=== PATIENT | female | born 1955 | race Caucasian/White ===

== ENCOUNTER → 2018-12-09 | Outpatient (CLI) | payer SELFPAY | END | disposition home or self-care (01) | LOC: HKI 15:07 | DX: M25.551 Pain in right hip (principal); R10.2 Pelvic and perineal pain | CPT/HCPCS: 73502 ==

== ENCOUNTER 2018-12-16 05:49 | Inpatient (IN) | payer OTHER ==
[2018-12-15] MEDS: TRANEXAMIC ACID 1GM/100ML(PMX) 100 ML PRE-OP IVPB (07:30)
[2018-12-16] MEDS: CEFAZOLIN 2 GM/50 ML (PMX) 50 ML IVPB ×3 (06:00→20:11)
[2018-12-16 06:32] LABS: ADD MAN DIFF? NO
[2018-12-16 06:40] LABS: BASOPHIL # 0.1 10^3/ul (0.0-0.1); BASOPHILS % 0.7 % (0.0-2.0); EOSINOPHILS # 0.2 10^3/ul (0.0-0.5); EOSINOPHILS % 2.2 % (0.0-7.0); HEMATOCRIT 38.5 % (37.0-47.0); HEMOGLOBIN 12.6 g/dl (12.0-16.0); LYMPHOCYTES # 3.1 10^3/ul (0.8-2.9); LYMPHOCYTES % 43.1 % (15.0-51.0); MEAN CORPUSCULAR HEMOGLOBIN 29.2 pg (29.0-33.0); MEAN CORPUSCULAR HGB CONC 32.7 g/dl (32.0-37.0); MEAN CORPUSCULAR VOLUME 89.3 fl (82.0-101.0); MEAN PLATELET VOLUME 8.4 fl (7.4-10.4); MONOCYTE # 0.6 10^3/ul (0.3-0.9); MONOCYTES % 8.5 % (0.0-11.0); NEUTROPHIL # 3.2 10^3/ul (1.6-7.5); NEUTROPHILS % 45.4 % (39.0-77.0); PLATELET COUNT 302 10^3/UL (140-415); RED BLOOD COUNT 4.31 10^6/ul (4.20-5.40); RED CELL DISTRIBUTION WIDTH 13.7 % (11.5-14.5)
[2018-12-16 06:40] LABS: WHITE BLOOD COUNT 7.2 10^3/ul (4.8-10.8)
[2018-12-16] MEDS: VANCOMYCIN 1 GM (PMX) 250 ML IVPB ×2 (06:44→17:43)
[2018-12-16] MEDS: ACETAMINOPHEN 1000MG/100ML IV 100 ML IVPB (06:44)
[2018-12-16] MEDS: CELECOXIB 200 MG CAP PO (06:45)
[2018-12-16] MEDS: LANSOPRAZOLE 30 MG CAP PO (06:45)
[2018-12-16] MEDS: DEXAMETHASONE 4 MG/ML 1 ML INJ IV (06:46)
[2018-12-16] MEDS: ONDANSETRON 4 MG INJ IV (06:46)
[2018-12-16] MEDS: LACTATED RINGER'S 1,000 ML IV* (06:54)
[2018-12-16] MEDS ORDERED: ROCURONIUM 50 MG INJ (07:00)
[2018-12-16 07:01] LABS: INR 0.88; PARTIAL THROMBOPLASTIN TIME 31.2 Sec (23.0-35.0); PT RATIO 0.9
[2018-12-16 07:07] LABS: ANION GAP 11 (5-13); CALCIUM 10.1 mg/dl (8.4-10.2); CARBON DIOXIDE 30 mmol/L (21-31); CHLORIDE 101 mmol/L (97-110); CREATININE 0.62 mg/dl (0.44-1.00); Estimated GFR > 60 mL/min (>60); GLUCOSE 82 mg/dl (70-220); POTASSIUM 4.4 mmol/L (3.5-5.1); SODIUM 142 mmol/L (135-144)
[2018-12-16 07:08] LABS: BLOOD UREA NITROGEN 21 mg/dl (7-20)
[2018-12-16] MEDS ORDERED: BACITRACIN 50000 UNITS INJ ×2 (07:11)
[2018-12-16] MEDS ORDERED: POLYMYXIN B 500000 UNIT INJ (07:13)
[2018-12-16] MEDS ORDERED: PROPOFOL 20 ML (07:27)
[2018-12-16] MEDS ORDERED: CEFAZOLIN 1 GM INJ (07:27)
[2018-12-16] MEDS ORDERED: FENTAnyl 50 MCG/ML VIAL (07:28)
[2018-12-16] MEDS ORDERED: MIDAZOLAM 1 MG/ML 2 ML INJ (07:28)
[2018-12-16] MEDS ORDERED: METOCLOPRAMIDE 10 MG INJ (07:28)
[2018-12-16] MEDS ORDERED: morphine SULFATE/PF (10 MG/10 ML) INJ (07:28)
[2018-12-16] MEDS ORDERED: TRANEXAMIC ACID 1GM/100ML(PMX) 200 ML (07:34)
[2018-12-16] MEDS: TRANEXAMIC ACID 1GM/100ML(PMX) 100 ML PRE-OP IVPB (08:19)
[2018-12-16] MEDS ORDERED: MEPERIDINE 25 MG INJ IV (08:30)
[2018-12-16] MEDS ORDERED: HYDROmorphONE 1 MG/5 ML IV SYRINGE IV ×3 (08:30)
[2018-12-16] MEDS ORDERED: FENTAnyl 50 MCG/ML VIAL IV ×3 (08:30)
[2018-12-16] MEDS ORDERED: ONDANSETRON 4 MG INJ IV (08:30)
[2018-12-16] MEDS ORDERED: ROPIVACAINE 0.5 % 30 ML VIAL (09:50)
[2018-12-16] MEDS ORDERED: ALBUMIN HUMAN 5% 250 ML (10:24)
[2018-12-16] MEDS ORDERED: EPHEDrine 50 MG INJ (10:24)
[2018-12-16] MEDS ORDERED: ONDANSETRON 4 MG INJ (10:46)
[2018-12-16] MEDS ORDERED: SUCCINYLCHOLINE CHLORIDE 100 MG/5 ML SYG IV (11:47)
[2018-12-16] MEDS ORDERED: SENNA/DOCUSATE NA (8.6MG/50MG) TAB PO (12:00)
[2018-12-16] MEDS ORDERED: HYDROmorphONE 1 MG/ML SYG IV (12:00)
[2018-12-16] MEDS ORDERED: BISACODYL 10 MG SUPP PR (12:00)
[2018-12-16] MEDS ORDERED: BETHANECHOL 25 MG TAB PO (12:00)
[2018-12-16] MEDS ORDERED: DIPHENHYDRAMINE 50 MG INJ IV (12:00)
[2018-12-16] MEDS ORDERED: NACL 0.9% 3 ML SYG IV (12:00)
[2018-12-16] MEDS ORDERED: NA PHOSPHATE/BIPHOS 133 ML ENEMA PR (12:00)
[2018-12-16] MEDS ORDERED: NALOXONE (0.4 MG/ML) INJ IV (12:00)
[2018-12-16] MEDS: DIPHENHYDRAMINE 50 MG INJ IV (12:05)
[2018-12-16] MEDS: TRANEXAMIC ACID 1GM/100ML(PMX) 100 ML AT CLOSING IVPB (12:07)
[2018-12-16] MEDS ORDERED: DOCUSATE SODIUM 100 MG CAP PO (12:48)
[2018-12-16] MEDS: DOCUSATE SODIUM 100 MG CAP PO (12:57)
[2018-12-16] MEDS: LACTATED RINGER'S 1,000 ML IV ×2 (13:40→20:14)
[2018-12-16] MEDS: ACETAMINOPHEN 500 MG TAB PO ×2 (14:52→21:57)
[2018-12-16] MEDS: GABAPENTIN 300 MG CAP PO (20:11)
[2018-12-17] MEDS: CEFAZOLIN 2 GM/50 ML (PMX) 50 ML IVPB (03:43)
[2018-12-17] MEDS: LACTATED RINGER'S 1,000 ML IV ×2 (03:43→22:22)
[2018-12-17] MEDS: oxyCODONE 5 MG TAB PO ×4 (03:52→20:42)
[2018-12-17] MEDS: VANCOMYCIN 1 GM (PMX) 250 ML IVPB (05:07)
[2018-12-17] MEDS: ACETAMINOPHEN 500 MG TAB PO ×3 (05:09→22:25)
[2018-12-17] MEDS: PANTOPRAZOLE (EC) 40 MG TAB PO (05:09)
[2018-12-17] MEDS: DEXAMETHASONE 10 MG/ML 1 ML INJ IV (05:12)
[2018-12-17 05:20] LABS: ABNORMAL IP MESSAGE 1; HEMATOCRIT 19.6 % (37.0-47.0); MEAN CORPUSCULAR HEMOGLOBIN 30.1 pg (29.0-33.0); MEAN CORPUSCULAR HGB CONC 33.2 g/dl (32.0-37.0); MEAN CORPUSCULAR VOLUME 90.7 fl (82.0-101.0); MEAN PLATELET VOLUME 8.9 fl (7.4-10.4); PLATELET COUNT 170 10^3/UL (140-415); RED BLOOD COUNT 2.16 10^6/ul (4.20-5.40); RED CELL DISTRIBUTION WIDTH 14.1 % (11.5-14.5)
[2018-12-17 05:37] LABS: ANION GAP 5 (5-13); BLOOD UREA NITROGEN 21 mg/dl (7-20); CALCIUM 8.4 mg/dl (8.4-10.2); CARBON DIOXIDE 27 mmol/L (21-31); CHLORIDE 106 mmol/L (97-110); CREATININE 0.75 mg/dl (0.44-1.00); Estimated GFR > 60 mL/min (>60); GLUCOSE 110 mg/dl (70-220); POTASSIUM 4.1 mmol/L (3.5-5.1); SODIUM 138 mmol/L (135-144)
[2018-12-17 05:42] LABS: INR 1.11; PROTIME 14.4 Sec (11.9-14.9); PT RATIO 1.1
[2018-12-17 05:55] LABS: POSITIVE DIFF @See below
[2018-12-17 05:58] LABS: ADD MAN DIFF? YES; HEMOGLOBIN 6.5 g/dl (12.0-16.0)
[2018-12-17 07:27] LABS: ADD MAN DIFF? NO
[2018-12-17 07:31] LABS: WHITE BLOOD COUNT 5.9 10^3/ul (4.8-10.8)
[2018-12-17 07:31] LABS: ABNORMAL IP MESSAGE 1; BASOPHILS % 0.2 % (0.0-2.0); EOSINOPHILS % 0.2 % (0.0-7.0); HEMATOCRIT 19.4 % (37.0-47.0); LYMPHOCYTES # 1.4 10^3/ul (0.8-2.9); LYMPHOCYTES % 24.1 % (15.0-51.0); MEAN CORPUSCULAR HEMOGLOBIN 29.7 pg (29.0-33.0); MEAN CORPUSCULAR HGB CONC 32.5 g/dl (32.0-37.0); MEAN CORPUSCULAR VOLUME 91.5 fl (82.0-101.0); MEAN PLATELET VOLUME 8.9 fl (7.4-10.4); MONOCYTE # 0.4 10^3/ul (0.3-0.9); MONOCYTES % 6.9 % (0.0-11.0); NEUTROPHIL # 4.1 10^3/ul (1.6-7.5); NEUTROPHILS % 68.3 % (39.0-77.0); PLATELET COUNT 179 10^3/UL (140-415); RED BLOOD COUNT 2.12 10^6/ul (4.20-5.40); RED CELL DISTRIBUTION WIDTH 14.1 % (11.5-14.5)
[2018-12-17 07:36] LABS: HEMOGLOBIN 6.3 g/dl (12.0-16.0)
[2018-12-17 07:37] LABS: POSITIVE DIFF @See below
[2018-12-17 07:38] LABS: ANISOCYTOSIS 1+ (0-0); BAND NEUTROPHILS % (M) 17 % (0-4); LYMPHOCYTES #M 1.6 10^3/ul (0.8-2.9); LYMPHOCYTES % (M) 28 % (15-51); MICROCYTOSIS 1+ (0-0); MONOCYTE #M 0.1 10^3/ul (0.3-0.9); MONOCYTES % (M) 2 % (0-11); PLATELET ESTIMATE NORMAL; SEG NEUT #M 3.2 10^3/ul (1.6-7.5); SEGMENTED NEUTROPHILS (M) % 53 % (39-77); SMUDGE%M 19 % (0-0)
[2018-12-17] MEDS: ASPIRIN (EC) 81 MG TAB PO ×2 (08:32→21:00)
[2018-12-17] MEDS: DOCUSATE SODIUM 100 MG CAP PO ×2 (08:32→20:42)
[2018-12-17] MEDS: CARISOPRODOL 350 MG TAB PO (11:45)
[2018-12-17] MEDS ORDERED: ONDANSETRON 4 MG INJ IV (12:00)
[2018-12-17 12:42] LABS: HEMATOCRIT 20.7 % (37.0-47.0)
[2018-12-17 12:46] LABS: HEMOGLOBIN 6.7 g/dl (12.0-16.0)
[2018-12-17 20:20] LABS: HEMATOCRIT 19.3 % (37.0-47.0)
[2018-12-17 20:27] LABS: HEMOGLOBIN 6.2 g/dl (12.0-16.0)
[2018-12-17] MEDS: GABAPENTIN 300 MG CAP PO (20:43)
[2018-12-18] MEDS: oxyCODONE 5 MG TAB PO ×2 (02:13→21:14)
[2018-12-18 05:19] LABS: ADD MAN DIFF? NO
[2018-12-18 05:23] LABS: WHITE BLOOD COUNT 6.3 10^3/ul (4.8-10.8)
[2018-12-18 05:23] LABS: ABNORMAL IP MESSAGE 1; BASOPHILS % 0.2 % (0.0-2.0); EOSINOPHILS % 0.5 % (0.0-7.0); HEMATOCRIT 17.9 % (37.0-47.0); LYMPHOCYTES # 1.8 10^3/ul (0.8-2.9); MEAN CORPUSCULAR HEMOGLOBIN 30.6 pg (29.0-33.0); MEAN CORPUSCULAR VOLUME 92.7 fl (82.0-101.0); MEAN PLATELET VOLUME 9.2 fl (7.4-10.4); MONOCYTE # 0.5 10^3/ul (0.3-0.9); MONOCYTES % 7.2 % (0.0-11.0); NEUTROPHILS % 63.6 % (39.0-77.0); PLATELET COUNT 161 10^3/UL (140-415); RED BLOOD COUNT 1.93 10^6/ul (4.20-5.40); RED CELL DISTRIBUTION WIDTH 14.4 % (11.5-14.5)
[2018-12-18 05:24] LABS: POSITIVE DIFF @See below
[2018-12-18 05:25] LABS: HEMOGLOBIN 5.9 g/dl (12.0-16.0)
[2018-12-18 05:41] LABS: ANION GAP 5 (5-13); BLOOD UREA NITROGEN 17 mg/dl (7-20); CALCIUM 8.2 mg/dl (8.4-10.2); CARBON DIOXIDE 29 mmol/L (21-31); CHLORIDE 106 mmol/L (97-110); CREATININE 0.67 mg/dl (0.44-1.00); Estimated GFR > 60 mL/min (>60); GLUCOSE 103 mg/dl (70-220); POTASSIUM 3.9 mmol/L (3.5-5.1); SODIUM 140 mmol/L (135-144)
[2018-12-18 05:43] LABS: INR 1.02; PROTIME 13.5 Sec (11.9-14.9); PT RATIO 1.1
[2018-12-18] MEDS: ACETAMINOPHEN 500 MG TAB PO ×3 (06:07→21:11)
[2018-12-18] MEDS: PANTOPRAZOLE (EC) 40 MG TAB PO (06:07)
[2018-12-18 06:21] LABS: IMMEDIATE SPIN CROSSMATCH 1 2
[2018-12-18] MEDS: DOCUSATE SODIUM 100 MG CAP PO ×2 (08:24→21:11)
[2018-12-18] MEDS: LACTATED RINGER'S 1,000 ML IV (15:30)
[2018-12-18] MEDS: SENNA TAB PO (17:06)
[2018-12-18 20:19] LABS: HEMATOCRIT 28.7 % (37.0-47.0); HEMOGLOBIN 9.4 g/dl (12.0-16.0)
[2018-12-18] MEDS: GABAPENTIN 300 MG CAP PO (21:11)
[2018-12-19] MEDS: LACTATED RINGER'S 1,000 ML IV (04:00)
[2018-12-19] MEDS: PANTOPRAZOLE (EC) 40 MG TAB PO (05:10)
[2018-12-19] MEDS: ACETAMINOPHEN 500 MG TAB PO ×3 (05:10→20:57)
[2018-12-19] MEDS: oxyCODONE 5 MG TAB PO ×2 (05:10→12:33)
[2018-12-19] MEDS: MAGNESIUM HYDROXIDE 30ML CUP PO (05:12)
[2018-12-19 05:37] LABS: ADD MAN DIFF? NO
[2018-12-19 05:47] LABS: BASOPHILS % 0.4 % (0.0-2.0); EOSINOPHILS # 0.2 10^3/ul (0.0-0.5); EOSINOPHILS % 2.2 % (0.0-7.0); HEMATOCRIT 26.8 % (37.0-47.0); HEMOGLOBIN 8.9 g/dl (12.0-16.0); LYMPHOCYTES # 2.5 10^3/ul (0.8-2.9); LYMPHOCYTES % 36.4 % (15.0-51.0); MEAN CORPUSCULAR HEMOGLOBIN 29.3 pg (29.0-33.0); MEAN CORPUSCULAR HGB CONC 33.2 g/dl (32.0-37.0); MEAN CORPUSCULAR VOLUME 88.2 fl (82.0-101.0); MONOCYTE # 0.4 10^3/ul (0.3-0.9); MONOCYTES % 5.5 % (0.0-11.0); NEUTROPHIL # 3.8 10^3/ul (1.6-7.5); NEUTROPHILS % 55.2 % (39.0-77.0); PLATELET COUNT 223 10^3/UL (140-415); RED BLOOD COUNT 3.04 10^6/ul (4.20-5.40); RED CELL DISTRIBUTION WIDTH 14.5 % (11.5-14.5)
[2018-12-19 05:47] LABS: WHITE BLOOD COUNT 6.9 10^3/ul (4.8-10.8)
[2018-12-19 06:00] LABS: INR 0.93; PROTIME 12.6 Sec (11.9-14.9)
[2018-12-19 06:16] LABS: ANION GAP 4 (5-13); BLOOD UREA NITROGEN 12 mg/dl (7-20); CALCIUM 8.4 mg/dl (8.4-10.2); CARBON DIOXIDE 27 mmol/L (21-31); CHLORIDE 107 mmol/L (97-110); CREATININE 0.58 mg/dl (0.44-1.00); Estimated GFR > 60 mL/min (>60); GLUCOSE 96 mg/dl (70-220); POTASSIUM 4.1 mmol/L (3.5-5.1); SODIUM 138 mmol/L (135-144)
[2018-12-19] MEDS: DOCUSATE SODIUM 100 MG CAP PO ×2 (09:04→20:56)
[2018-12-19 09:53] LABS: ADD UMIC NO; UR ASCORBIC ACID NEGATIVE (NEGATIVE); UR BILIRUBIN (Dip) NEGATIVE (NEGATIVE); UR BLOOD (Dip) NEGATIVE (NEGATIVE); UR CLARITY CLEAR (CLEAR); UR COLOR YELLOW (YELLOW); UR GLUCOSE (Dip) NEGATIVE (NEGATIVE); UR KETONES (Dip) NEGATIVE (NEGATIVE); UR LEUKOCYTE ESTERASE (Dip) NEGATIVE Leu/ul (NEGATIVE); UR NITRITE (Dip) NEGATIVE (NEGATIVE); UR SPECIFIC GRAVITY (Dip) 1.015 (1.003-1.030); UR TOTAL PROTEIN (Dip) NEGATIVE (NEGATIVE); UR UROBILINOGEN (Dip) NEGATIVE (NEGATIVE)
[2018-12-19] MEDS: GABAPENTIN 300 MG CAP PO (20:56)
[2018-12-20] MEDS: oxyCODONE 5 MG TAB PO ×3 (04:24→16:39)
[2018-12-20] MEDS: ACETAMINOPHEN 500 MG TAB PO ×2 (05:17→14:25)
[2018-12-20 05:18] LABS: ADD MAN DIFF? NO
[2018-12-20 05:25] LABS: BASOPHILS % 0.4 % (0.0-2.0); EOSINOPHILS # 0.1 10^3/ul (0.0-0.5); EOSINOPHILS % 2.7 % (0.0-7.0); HEMOGLOBIN 9.3 g/dl (12.0-16.0); LYMPHOCYTES # 1.5 10^3/ul (0.8-2.9); LYMPHOCYTES % 29.2 % (15.0-51.0); MEAN CORPUSCULAR HEMOGLOBIN 29.6 pg (29.0-33.0); MEAN CORPUSCULAR HGB CONC 33.2 g/dl (32.0-37.0); MEAN CORPUSCULAR VOLUME 89.2 fl (82.0-101.0); MEAN PLATELET VOLUME 8.7 fl (7.4-10.4); MONOCYTE # 0.4 10^3/ul (0.3-0.9); MONOCYTES % 8.4 % (0.0-11.0); NEUTROPHIL # 3.1 10^3/ul (1.6-7.5); NEUTROPHILS % 58.9 % (39.0-77.0); PLATELET COUNT 268 10^3/UL (140-415); RED BLOOD COUNT 3.14 10^6/ul (4.20-5.40); RED CELL DISTRIBUTION WIDTH 13.9 % (11.5-14.5)
[2018-12-20 05:25] LABS: WHITE BLOOD COUNT 5.2 10^3/ul (4.8-10.8)
[2018-12-20] MEDS: PANTOPRAZOLE (EC) 40 MG TAB PO (05:26)
[2018-12-20 05:40] LABS: PROTIME 12.3 Sec (11.9-14.9)
[2018-12-20 05:44] LABS: ANION GAP 6 (5-13); BLOOD UREA NITROGEN 12 mg/dl (7-20); CALCIUM 8.9 mg/dl (8.4-10.2); CARBON DIOXIDE 31 mmol/L (21-31); CHLORIDE 103 mmol/L (97-110); Estimated GFR > 60 mL/min (>60); GLUCOSE 100 mg/dl (70-220); POTASSIUM 4.2 mmol/L (3.5-5.1); SODIUM 140 mmol/L (135-144)
== END 2018-12-20 17:00 | disposition home health service (06) | DRG 470 ==
LOC: REC 05:49 → MS1 13:40
PROC: 0SR904A Replacement of Right Hip Joint with Ceramic on Polyethylene Synthetic Substitute, Uncemented, Open Approach (ICD-10-PCS; principal; 2018-12-16 07:27)
PROC: 0QU407Z Supplement Right Acetabulum with Autologous Tissue Substitute, Open Approach (ICD-10-PCS; 2018-12-16 07:27)
DX: M24.7 Protrusio acetabuli (principal); D62 Acute posthemorrhagic anemia; M16.7 Other unilateral secondary osteoarthritis of hip; Z79.82 Long term (current) use of aspirin
CPT/HCPCS: 36430; 72170; 73500; 73530; 80048; 81003; 85014; 85018; 85025; 85610; 85730; 86850; 86900; 86901; 86920; 87081; 87086; 88304; 88311; 93005; 97110; 97116; 97162; 97165; 97530; 97535

== ENCOUNTER 2019-04-21 08:13 | Inpatient (IN) | payer MEDICARE, OTHER ==
[2019-04-21] MEDS: LACTATED RINGER'S 1,000 ML IV ×2 (09:12→17:00)
[2019-04-21] MEDS: LANSOPRAZOLE 30 MG CAP PO (09:16)
[2019-04-21] MEDS: CELECOXIB 200 MG CAP PO (09:16)
[2019-04-21] MEDS: GABAPENTIN 300 MG CAP PO ×2 (09:16→20:48)
[2019-04-21] MEDS: ACETAMINOPHEN 1000MG/100ML IV 100 ML IVPB (09:17)
[2019-04-21] MEDS: ONDANSETRON 4 MG INJ IV (09:17)
[2019-04-21] MEDS: DEXAMETHASONE 4 MG/ML 1 ML INJ IV (09:17)
[2019-04-21 09:46] LABS: INR 0.82; PROTIME 11.4 Sec (11.9-14.9); PT RATIO 0.9
[2019-04-21 09:47] LABS: PARTIAL THROMBOPLASTIN TIME 29.3 Sec (23.0-35.0)
[2019-04-21] MEDS: TRANEXAMIC ACID 1GM/100ML(PMX) 100 ML PRE-OP IVPB (10:00)
[2019-04-21] MEDS: CEFAZOLIN 2 GM/50 ML (PMX) 50 ML IVPB ×2 (10:00→21:23)
[2019-04-21] MEDS: TRANEXAMIC ACID 1GM/100ML(PMX) 100 ML AT CLOSING IVPB (10:00)
[2019-04-21] MEDS ORDERED: SEVOFLURANE 15 MIN (12:00)
[2019-04-21] MEDS ORDERED: TRANEXAMIC ACID 1GM/100ML(PMX) 200 ML (12:03)
[2019-04-21] MEDS ORDERED: ROCURONIUM 50 MG INJ (12:09)
[2019-04-21] MEDS ORDERED: GLYCOPYRROLATE 0.4 MG INJ ×2 (12:09→14:59)
[2019-04-21] MEDS ORDERED: PROPOFOL 20 ML (12:09)
[2019-04-21] MEDS ORDERED: NEOSTIGMINE 3 MG/3 ML SYRINGE ×2 (12:09→14:59)
[2019-04-21] MEDS ORDERED: SUCCINYLCHOLINE CHLORIDE 100 MG/5 ML SYG IV (12:09)
[2019-04-21] MEDS ORDERED: LIDOCAINE 2% (SDV) 5 ML INJ (12:09)
[2019-04-21] MEDS ORDERED: ONDANSETRON 4 MG INJ (12:13)
[2019-04-21] MEDS ORDERED: CEFAZOLIN 1 GM INJ (12:13)
[2019-04-21] MEDS ORDERED: METOCLOPRAMIDE 10 MG INJ (12:13)
[2019-04-21] MEDS ORDERED: ROPIVACAINE 0.5 % 30 ML VIAL (12:13)
[2019-04-21] MEDS ORDERED: DEXAMETHASONE 4 MG/ML 5 ML INJ (13:11)
[2019-04-21] MEDS ORDERED: EPHEDrine 25 MG/5 ML SYG (14:02)
[2019-04-21] MEDS ORDERED: hydrALAzine 20 MG INJ IV (16:00)
[2019-04-21] MEDS ORDERED: METOCLOPRAMIDE 10 MG INJ IV (16:00)
[2019-04-21] MEDS ORDERED: DIPHENHYDRAMINE 50 MG INJ IV ×2 (16:00→16:30)
[2019-04-21] MEDS ORDERED: LABETALOL HCL 20MG INJ IV (16:00)
[2019-04-21] MEDS ORDERED: FENTAnyl 50 MCG/ML VIAL IV ×3 (16:00)
[2019-04-21] MEDS ORDERED: ONDANSETRON 4 MG INJ IV (16:00)
[2019-04-21] MEDS ORDERED: EPHEDrine 25 MG/5 ML SYG IV (16:00)
[2019-04-21] MEDS ORDERED: HYDROmorphONE 1 MG/5 ML IV SYRINGE IV ×3 (16:00)
[2019-04-21] MEDS ORDERED: MIDAZOLAM 1 MG/ML 2 ML INJ IV (16:00)
[2019-04-21] MEDS ORDERED: MEPERIDINE 25 MG INJ IV (16:00)
[2019-04-21] MEDS ORDERED: MAGNESIUM HYDROXIDE 30ML CUP PO (16:30)
[2019-04-21] MEDS: DOCUSATE SODIUM 100 MG CAP PO (16:30)
[2019-04-21] MEDS ORDERED: HYDROmorphONE 1 MG/ML SYG IV (16:30)
[2019-04-21] MEDS ORDERED: NA PHOSPHATE/BIPHOS 133 ML ENEMA PR (16:30)
[2019-04-21] MEDS ORDERED: NALOXONE (0.4 MG/ML) INJ IV (16:30)
[2019-04-21] MEDS ORDERED: oxyCODONE 5 MG TAB PO (16:30)
[2019-04-21] MEDS ORDERED: BETHANECHOL 25 MG TAB PO (16:30)
[2019-04-21] MEDS ORDERED: NACL 0.9% 3 ML SYG IV (16:30)
[2019-04-21] MEDS ORDERED: SENNA/DOCUSATE NA (8.6MG/50MG) TAB PO (16:30)
[2019-04-21] MEDS ORDERED: BISACODYL 10 MG SUPP PR (16:30)
[2019-04-21] MEDS: ACETAMINOPHEN 500 MG TAB PO (20:49)
[2019-04-22] MEDS: oxyCODONE 5 MG TAB PO ×3 (00:59→16:36)
[2019-04-22] MEDS: CEFAZOLIN 2 GM/50 ML (PMX) 50 ML IVPB ×2 (04:23→11:34)
[2019-04-22] MEDS: LACTATED RINGER'S 1,000 ML IV ×2 (04:27→18:00)
[2019-04-22 06:13] LABS: ADD MAN DIFF? NO
[2019-04-22 06:22] LABS: WHITE BLOOD COUNT 10.1 10^3/ul (4.8-10.8)
[2019-04-22 06:22] LABS: BASOPHILS % 0.1 % (0.0-2.0); HEMATOCRIT 27.8 % (37.0-47.0); HEMOGLOBIN 9.2 g/dl (12.0-16.0); LYMPHOCYTES # 1.5 10^3/ul (0.8-2.9); LYMPHOCYTES % 14.4 % (15.0-51.0); MEAN CORPUSCULAR HEMOGLOBIN 29.4 pg (29.0-33.0); MEAN CORPUSCULAR HGB CONC 33.1 g/dl (32.0-37.0); MEAN CORPUSCULAR VOLUME 88.8 fl (82.0-101.0); MEAN PLATELET VOLUME 8.8 fl (7.4-10.4); MONOCYTE # 0.7 10^3/ul (0.3-0.9); MONOCYTES % 6.4 % (0.0-11.0); NEUTROPHILS % 78.7 % (39.0-77.0); PLATELET COUNT 241 10^3/UL (140-415); RED BLOOD COUNT 3.13 10^6/ul (4.20-5.40); RED CELL DISTRIBUTION WIDTH 13.7 % (11.5-14.5)
[2019-04-22] MEDS: DEXAMETHASONE 10 MG/ML 1 ML INJ IV (06:33)
[2019-04-22] MEDS: ACETAMINOPHEN 500 MG TAB PO ×3 (06:33→21:11)
[2019-04-22] MEDS: PANTOPRAZOLE (EC) 40 MG TAB PO (06:33)
[2019-04-22 06:40] LABS: INR 1.02; PROTIME 13.5 Sec (11.9-14.9); PT RATIO 1.1
[2019-04-22 06:51] LABS: ANION GAP 6 (5-13); BLOOD UREA NITROGEN 17 mg/dl (7-20); CALCIUM 8.5 mg/dl (8.4-10.2); CARBON DIOXIDE 28 mmol/L (21-31); CHLORIDE 104 mmol/L (97-110); CREATININE 0.64 mg/dl (0.44-1.00); Estimated GFR > 60 mL/min (>60); GLUCOSE 119 mg/dl (70-220); POTASSIUM 3.9 mmol/L (3.5-5.1); SODIUM 138 mmol/L (135-144)
[2019-04-22] MEDS: DOCUSATE SODIUM 100 MG CAP PO ×2 (09:22→21:10)
[2019-04-22] MEDS: ASPIRIN (EC) 81 MG TAB PO ×2 (09:22→21:10)
[2019-04-22] MEDS ORDERED: LORAZEPAM 0.5 MG TAB PO (16:00)
[2019-04-22] MEDS ORDERED: ONDANSETRON 4 MG INJ IV (16:30)
[2019-04-22] MEDS: BUPROPION (XL) 150 MG TAB PO (16:33)
[2019-04-22] MEDS: GABAPENTIN 300 MG CAP PO (21:10)
[2019-04-22] MEDS: BUSPIRONE 10 MG TAB PO (21:10)
[2019-04-23] MEDS: ACETAMINOPHEN 500 MG TAB PO ×3 (05:29→23:10)
[2019-04-23] MEDS: PANTOPRAZOLE (EC) 40 MG TAB PO (05:30)
[2019-04-23 06:18] LABS: ADD MAN DIFF? NO
[2019-04-23 06:26] LABS: WHITE BLOOD COUNT 7.2 10^3/ul (4.8-10.8)
[2019-04-23 06:26] LABS: BASOPHILS % 0.1 % (0.0-2.0); EOSINOPHILS % 0.4 % (0.0-7.0); HEMATOCRIT 25.9 % (37.0-47.0); HEMOGLOBIN 8.5 g/dl (12.0-16.0); LYMPHOCYTES # 2.2 10^3/ul (0.8-2.9); LYMPHOCYTES % 30.2 % (15.0-51.0); MEAN CORPUSCULAR HEMOGLOBIN 29.2 pg (29.0-33.0); MEAN CORPUSCULAR HGB CONC 32.8 g/dl (32.0-37.0); MEAN PLATELET VOLUME 8.8 fl (7.4-10.4); MONOCYTE # 0.4 10^3/ul (0.3-0.9); MONOCYTES % 5.8 % (0.0-11.0); NEUTROPHIL # 4.6 10^3/ul (1.6-7.5); NEUTROPHILS % 63.2 % (39.0-77.0); PLATELET COUNT 225 10^3/UL (140-415); RED BLOOD COUNT 2.91 10^6/ul (4.20-5.40); RED CELL DISTRIBUTION WIDTH 14.1 % (11.5-14.5)
[2019-04-23 06:41] LABS: INR 0.96; PROTIME 12.9 Sec (11.9-14.9)
[2019-04-23 06:48] LABS: ANION GAP 6 (5-13); BLOOD UREA NITROGEN 23 mg/dl (7-20); CALCIUM 8.7 mg/dl (8.4-10.2); CARBON DIOXIDE 28 mmol/L (21-31); CHLORIDE 104 mmol/L (97-110); CREATININE 0.77 mg/dl (0.44-1.00); Estimated GFR > 60 mL/min (>60); GLUCOSE 102 mg/dl (70-220); POTASSIUM 3.5 mmol/L (3.5-5.1); SODIUM 138 mmol/L (135-144)
[2019-04-23] MEDS: DOCUSATE SODIUM 100 MG CAP PO ×2 (08:48→20:35)
[2019-04-23] MEDS: BUSPIRONE 10 MG TAB PO ×2 (08:48→20:34)
[2019-04-23] MEDS: ASPIRIN (EC) 81 MG TAB PO ×2 (08:48→20:35)
[2019-04-23] MEDS: BUPROPION (XL) 150 MG TAB PO (08:48)
[2019-04-23] MEDS: oxyCODONE 5 MG TAB PO (08:49)
[2019-04-23] MEDS: SOD CHLORIDE 0.9% 1,000 ML IV ×2 (10:19→12:35)
[2019-04-23 11:26] LABS: MAGNESIUM 2.1 mg/dl (1.7-2.5)
[2019-04-23] MEDS: GABAPENTIN 300 MG CAP PO (20:34)
[2019-04-24] MEDS: ACETAMINOPHEN 500 MG TAB PO ×2 (06:00→13:07)
[2019-04-24 06:02] LABS: ADD MAN DIFF? NO
[2019-04-24 06:12] LABS: WHITE BLOOD COUNT 6.1 10^3/ul (4.8-10.8)
[2019-04-24 06:12] LABS: BASOPHILS % 0.3 % (0.0-2.0); EOSINOPHILS # 0.2 10^3/ul (0.0-0.5); EOSINOPHILS % 2.6 % (0.0-7.0); HEMATOCRIT 25.5 % (37.0-47.0); HEMOGLOBIN 8.1 g/dl (12.0-16.0); LYMPHOCYTES # 2.5 10^3/ul (0.8-2.9); LYMPHOCYTES % 41.3 % (15.0-51.0); MEAN CORPUSCULAR HEMOGLOBIN 28.9 pg (29.0-33.0); MEAN CORPUSCULAR HGB CONC 31.8 g/dl (32.0-37.0); MEAN CORPUSCULAR VOLUME 91.1 fl (82.0-101.0); MEAN PLATELET VOLUME 8.6 fl (7.4-10.4); MONOCYTE # 0.4 10^3/ul (0.3-0.9); MONOCYTES % 7.2 % (0.0-11.0); NEUTROPHILS % 48.4 % (39.0-77.0); PLATELET COUNT 224 10^3/UL (140-415); RED CELL DISTRIBUTION WIDTH 14.1 % (11.5-14.5)
[2019-04-24 06:22] LABS: INR 0.95; PROTIME 12.8 Sec (11.9-14.9)
[2019-04-24 06:30] LABS: ANION GAP 5 (5-13); BLOOD UREA NITROGEN 13 mg/dl (7-20); CALCIUM 8.4 mg/dl (8.4-10.2); CARBON DIOXIDE 27 mmol/L (21-31); CHLORIDE 108 mmol/L (97-110); CREATININE 0.61 mg/dl (0.44-1.00); Estimated GFR > 60 mL/min (>60); GLUCOSE 95 mg/dl (70-220); POTASSIUM 3.7 mmol/L (3.5-5.1); SODIUM 140 mmol/L (135-144)
[2019-04-24] MEDS: PANTOPRAZOLE (EC) 40 MG TAB PO (06:58)
[2019-04-24] MEDS: BUSPIRONE 10 MG TAB PO (08:45)
[2019-04-24] MEDS: ASPIRIN (EC) 81 MG TAB PO (08:45)
[2019-04-24] MEDS: BUPROPION (XL) 150 MG TAB PO (08:45)
[2019-04-24] MEDS: DOCUSATE SODIUM 100 MG CAP PO (08:45)
[2019-04-24] MEDS: oxyCODONE 5 MG TAB PO (10:36)
[2019-04-24] MEDS: SOD CHLORIDE 0.9% 1,000 ML IV (11:08)
== END 2019-04-24 16:15 | disposition home health service (06) | DRG 470 ==
LOC: REC 08:13 → MS1 18:24
PROC: 0SRB04Z Replacement of Left Hip Joint with Ceramic on Polyethylene Synthetic Substitute, Open Approach (ICD-10-PCS; principal; 2019-04-21 12:00)
DX: M16.12 Unilateral primary osteoarthritis, left hip (principal); M24.7 Protrusio acetabuli; F32.9 Major depressive disorder, single episode, unspecified; I95.2 Hypotension due to drugs
CPT/HCPCS: 72170; 73500; 73530; 80048; 82962; 83735; 85025; 85610; 85730; 86850; 86900; 86901; 86920; 87081; 87086; 88304; 88311; 97110; 97116; 97161; 97165; 97530; 97535